=== PATIENT | female | born 1940 | race Caucasian/White ===

== ENCOUNTER 2023-12-09 08:00 | Day surgery (SDC) | payer MEDICARE, OTHER ==
[~2023-12-09 08:00] MED LIST: EPINEPHrine 1 MG/ML SDV ONE; Lactated Ringers 1,000 ML IV SCH; Lidocaine 1% 5 ML VIAL ONE; Midazolam 1 MG/ML 2 ML SDV ONE; Morphine 8 MG, EPINEPHrine 0.3 MG, Cefuroxime 750 MG, Ketorolac 30 MG, Sodium Chloride ... PRN; Propofol 200 MG/20 ML SDV ONE; Ropivacaine 0.5% 5 MG/ML 30 ML SDV ONE; Sodium Chloride 0.9% 10 ML Syringe FLUSH PRN; Sodium Chloride 0.9% 10 ML Syringe FLUSH SCH; ceFAZolin 2 GM Vial ONE; fentaNYL 100 MCG/2 ML SDV ONE
[2023-12-09] MEDS: Lactated Ringers 1,000 ML IV SCH (08:30)
[2023-12-09 09:00] LABS: ALBUMIN 3.6 g/dl (3.4-5.0); ANION GAP 15.7 (5-15); BILIRUBIN TOTAL 0.6 mg/dL (0.2-1.0); CALCIUM 9.9 mg/dL (8.5-10.1); EST CRCL DRUG DOSING (CG) 32.25 mL/min; POTASSIUM,K 3.7 mEq/L (3.5-5.1); PROTEIN TOTAL,TP 7.2 g/dl (6.4-8.2)
[2023-12-09] MEDS ORDERED: ePHEDrine 50 MG/ML SDV ONE (10:00)
[2023-12-09] MEDS ORDERED: Phenylephrine 1% 10 MG/ML SDV ONE (10:30)
[2023-12-09] MEDS ORDERED: Lactated Ringers 1,000 ML ONE (10:33)
[2023-12-09] MEDS ORDERED: dexmedeTOMIDine HCl 200 MCG/2 ML SDV ONE (10:51)
[2023-12-09] MEDS ORDERED: HYDROmorphone 0.5 MG/0.5 ML Syringe IVPUSH PRN (11:04)
[2023-12-09] MEDS ORDERED: fentaNYL 100 MCG/2 ML SDV IVPUSH PRN (11:04)
[2023-12-09] MEDS ORDERED: Ondansetron 4 MG/2 ML SDV IVPUSH PRN (11:04)
[2023-12-09] MEDS ORDERED: Hydrocortisone Sodium Succinate 100 MG/2 ML SDV ONE (11:26)
[2023-12-09] MEDS: Acetaminophen/HYDROcodone 325-5 MG Tab PO PRN (13:28)
[2023-12-09] MEDS: Morphine 8 MG, EPINEPHrine 0.3 MG, Cefuroxime 750 MG, Ketorolac 30 MG, Sodium Chloride ... PRN (13:38)
[2023-12-09] MEDS: Vancomycin 1 GM SDV ONE (13:39)
[2023-12-09] MEDS: Tranexamic Acid 1,000 MG/10 ML Vial ONE (13:40)
[2023-12-09] MEDS ORDERED: Acetaminophen/HYDROcodone 325-5 MG Tab PO SCH (14:49)
== END 2023-12-09 16:40 | disposition home or self-care (01) ==
LOC: JD.SDS 08:00
PROVIDERS: ATTEND Orthopaedic Surgery
DX: M17.11 Unilateral primary osteoarthritis, right knee (principal); I10 Essential (primary) hypertension; F03.90 Unspecified dementia, unspecified severity, without behavioral disturbance, psychotic disturbance, mood disturbance, and anxiety; D50.9 Iron deficiency anemia, unspecified; Z79.899 Other long term (current) drug therapy; Z88.0 Allergy status to penicillin
CPT/HCPCS: 01402; 36415; 64447; 73560-26-RT; 73560-RT; 80053; 97110-GP; 97161-GP; A9270-GY; C1713; C1776; J0171; J0690; J0697; J1720; J1885; J2250; J2270; J2371; J2704; J2795; J3010; J3370; J3490; J7120